=== PATIENT | female | born 1960 ===

== ENCOUNTER 2023-12-06 05:37 | Day surgery (SDC) | payer OTHER ==
[~2023-12-06 05:37] MED LIST: OSTERA TABLET1 EACH
[2023-12-06] MEDS ORDERED: METRONIDAZOLE/SODIUM CHLORIDE 500 MG/100 ML PIGGYBACK IV ONE ×2 (07:42→09:30)
[2023-12-06] MEDS ORDERED: CEFTRIAXONE SODIUM 2,000 MG VIAL ONE (07:42)
[2023-12-06] MEDS ORDERED: BUPIVACAINE HCL/PF 0.5% 30ML ML ONE (08:38)
[2023-12-06] MEDS ORDERED: LIDOCAINE HCL 1%/Epi 20ML VIAL IJ ONE ×2 (08:38→09:30)
[2023-12-06] MEDS ORDERED: POVIDONE-IODINE 118 ML BOTT TOP ONE ×2 (08:38→09:30)
[2023-12-06] MEDS ORDERED: HEMOSTATIC MATRIX 1 KIT KIT TOP ONE ×2 (08:38→09:30)
[2023-12-06] MEDS ORDERED: DIBUCAINE 15 GM OINT..GM. TUBE ONE (08:38)
[2023-12-06] MEDS ORDERED: DIBUCAINE 15 GM OINT..GM. TUBE RECTAL ONE (09:30)
[2023-12-06] MEDS ORDERED: CEFTRIAXONE SODIUM 2,000 MG VIAL IV ONE (09:30)
[2023-12-06] MEDS ORDERED: BUPIVACAINE LIPOSOME/PF 266 MG/20 ML VIAL IJ ONE (09:30)
[2023-12-06] MEDS ORDERED: BUPIVACAINE HCL 30 ML VIAL IJ ONE (09:30)
[2023-12-06] MEDS ORDERED: PERCOCET 5-3251 EACH PO (10:50)
[2023-12-06] MEDS ORDERED: NEURONTIN300 MG PO (10:50)
[2023-12-06] MEDS ORDERED: CELECOXIB200 MG PO (10:51)
[2023-12-06] MEDS ORDERED: GABAPENTIN 300 MG CAPSULE PO STA (15:45)
[2023-12-06] MEDS ORDERED: MEPERIDINE HCL/PF 50 MG/ML VIAL IV SCH (15:45)
== END 2023-12-06 18:10 | disposition home or self-care (01) ==
LOC: CIR.AMB 05:37
PROVIDERS: ATTEND Surgery
DX: K64.2 Third degree hemorrhoids (principal); N81.6 Rectocele; K62.3 Rectal prolapse; Z20.822 Contact with and (suspected) exposure to COVID-19